=== PATIENT | male | born 1985 | race Two or more races ===

== ENCOUNTER 2022-04-24 15:24 | Emergency (ER) | payer MEDICAID, OTHER ==
[~2022-04-24] VITALS: Ht 177.8 cm; Wt 96.3 kg
[2022-04-24 18:56] VITALS: BP 142/86
[2022-04-24] MEDS ORDERED: cefTRIAXone SODIUM 250 MG VL IM ONE (19:15)
[2022-04-24] MEDS ORDERED: cefTRIAXone SOD 500 MG VL IM ONE (19:15)
[2022-04-24] MEDS ORDERED: DOXY-338 PO (19:16)
== END 2022-04-24 19:30 | disposition home or self-care (01) ==
LOC: ER 15:24
DX: A64 Unspecified sexually transmitted disease (principal); Z79.2 Long term (current) use of antibiotics
CPT/HCPCS: 96372; 99283; J0696